=== PATIENT | female | born 1955 | race Caucasian/White ===

== ENCOUNTER → 2017-05-18 | Outpatient (CLI) | payer BC ==
[~2017-05-18] MED LIST: ESTRACE1 MG PO; IBUPROFEN 600600 M1 PO; LANOXIN 0.250.25 M1 PO; MIRALAX255 GM PO; OCUVITE TABLET1 EAC1 PO; PREVACID 30MG C30 M1 PO; PROBIOTIC FORM1 EACH PO; PROVERA2.5 MG PO; SIMVASTATIN40 MG PO
== END ==
LOC: RAD 13:29
DX: Z12.31 Encounter for screening mammogram for malignant neoplasm of breast (principal)